=== PATIENT | male | born 1980 | race African-American/Black ===

== ENCOUNTER 2017-02-06 09:22 | Emergency (ER) | payer SELFPAY ==
[~2017-02-06] VITALS: Ht 175.3 cm; Wt 78.0 kg
[~2017-02-06 09:22] MED LIST: BACTDS PO; CEPH-443 PO; IBUP-1542 PO; METH500T PO; NAPR-260 PO; PROM6.25 PO
[2017-02-06 09:26] VITALS: Ht 175.3 cm; Wt 78.0 kg
[2017-02-06] MEDS ORDERED: CLIN-73 PO (10:18)
--- NOTE | 2017-02-06 10:18 | ERD ---
ER Documentation Chief Complaint Date/Time DATE: 02/06/17 TIME: 10:12 Chief Complaint pt bib tooth pain, and swelling x 2 days HPI This is a 36-year-old male who presents to the emergency department today complaining of left-sided dental pain and left-sided facial swelling for the past 2 days. Patient states he drinks alcohol, smokes marijuana and takes methamphetamines occasionally. Denies any fevers or chills, sore throat or difficulty breathing ROS All systems reviewed and are negative except as per history of present illness. Medications Home Meds Active Scripts Acetaminophen* (Tylophen*) 500 Mg Capsule, 1 CAP PO Q6H Y for PAIN AND OR ELEVATED TEMP, #30 CAP Prov:MARILU VILLARREAL PA-C 02/06/17 Naproxen* (Naprosyn*) 500 Mg Tablet, 500 MG PO BID Y for PAIN AND/OR INFLAMMATION, #30 TAB Prov:MARILU VILLARREAL PA-C 02/06/17 Clindamycin Hcl* (Clindamycin Hcl*) 300 Mg Capsule, 300 MG PO QID for 7 Days, CAP Prov:MARILU VILLARREAL PA-C 02/06/17 Methocarbamol* (Robaxin*) 500 Mg Tab, 500 MG PO Q8, #20 TAB Prov:RADHABONNIE DO 06/28/16 Naproxen* (Naprosyn*) 500 Mg Tablet, 500 MG PO BID Y for PAIN AND/OR INFLAMMATION, #30 TAB Prov:RADHABONNIE DO 06/28/16 Cephalexin* (Keflex*) 500 Mg Capsule, 500 MG PO QID for 7 Days, #28 CAP 0 Refills Prov:EFRA TROY PA-C 05/20/16 Promethazine w/Codeine* (Phenergan w/Codeine* Syrup) 5 Ml Syrup, 5 ML PO Q6 Y for COUGH for 3 Days, #60 ML 0 Refills Prov:EFRA TROY PA-C 05/20/16 Ibuprofen* (Motrin*) 600 Mg Tab, 600 MG PO Q8 for 10 Days, #30 TAB 0 Refills Prov:EFRA TROY PA-C 05/20/16 Sulfamethoxazole-Trimethoprim* (Bactrim* DS) 800-160 Mg Tab, 1 TAB PO BID for 7 Days, #14 TAB 0 Refills Prov:EFRA TROY PA-C 05/20/16 Allergies Allergies: Coded Allergies: Penicillins (Verified Allergy, Severe, 06/28/16) PMhx/Soc Medical and Surgical Hx: pt denies Medical Hx History of Surgery: No Anesthesia Reaction: No Hx Neurological Disorder: No Hx Respiratory Disorders: No Hx Cardiac Disorders: No Hx Psychiatric Problems: No Hx Miscellaneous Medical Probl: No Hx Alcohol Use: No Hx Substance Use: Yes (marijuana taken this morning) Hx Tobacco Use: No (marijuana) Physical Exam Vitals Vital Signs Date Time Temp Pulse Resp B/P Pulse Ox O2 Delivery O2 Flow Rate FiO2 02/06/17 09:26 98.3 84 18 146/90 98 Physical Exam Const: Talkative, no acute distress Head: Atraumatic Eyes: Normal Conjunctiva ENT: Ears TMs normal. Nose no drainage. Throat no erythema no exudate. Dental fracture and poor dentition left lower molars. Evidence of left-sided facial swelling likely small area of abscess that is firm and indurated with no evidence of fluctuance. No purulent drainage. Neck: Full range of motion..~ No meningismus. Resp: Clear to auscultation bilaterally Cardio: Regular rate and rhythm, no murmurs Skin: No petechiae or rashes Neur: Awake and alert Psych: Normal Mood and Affect Results 24 hrs Current Medications Medications (Trade) Dose Ordered Sig/Edy Route PRN Reason Start Time Stop Time Status Last Admin Dose Admin Clindamycin Phosphate (Cleocin) 600 mg ONCE ONCE IM 02/06/17 10:30 02/06/17 10:31 Ibuprofen (Motrin) 600 mg ONCE ONCE PO 02/06/17 10:30 02/06/17 10:31 Procedures/MDM This a 36-year-old male who presents to the emergency department today for dental pain and left-sided facial swelling. On physical exam patient has evidence of multiple areas of tooth fractures and poor dentition. He did have a localized area of swelling externally along the left side of his jaw. Patient has been seen here in the emergency department multiple times in the past for dental pain and abscesses. Patient is afebrile and otherwise well- appearing. He is talkative in no acute distress. Low suspicion for Romulo angina, retropharyngeal abscess, peritonsillar abscess, deep cavernous thrombosis, sepsis. I do not feel the patient requires laboratory work or imaging at this time he was also given Motrin. Patient was given a prescription for Naprosyn, clindamycin for home. I do not feel the patient's abscess requires incision and drainage at this time as there is no fluctuance. He was instructed to return in 48 hours for a wound check. Patient had an alcohol bottle that was empty fall out of his pocket or backpack as he was laying on the bed. I do not feel the patient would benefit from narcotics as he abuses drugs. Patient was given information for [facility] dentist I attempted to give the patient intramuscular clindamycin here however he refused. Patient was also asking for promethazine. Patient did not report a cough. Patient is exhibiting drug-seeking behaviors. At this time the patient is stable for discharge and outpatient management. Patient should follow up with their PCP in the next 1-2 days. they may return to the emergency department sooner for any persistent or worsening of symptoms. Patient understood and agreed with the plan. Departure Diagnosis: Primary Impression: Pain, dental Additional Impression: Facial abscess Condition: Fair MARILU VILLARREAL PA-C Feb 06, 2017 10:17
[2017-02-06] MEDS ORDERED: ACET500C5 PO (10:19)
[2017-02-06] MEDS ORDERED: NAPR-260 PO (10:19)
[2017-02-06] MEDS ORDERED: CLINDAMYCIN 300 MG INJ IM ONE (10:30)
[2017-02-06] MEDS ORDERED: IBUPROFEN 600 MG TAB PO ONE (10:30)
== END 2017-02-06 10:53 | disposition home or self-care (01) ==
LOC: FTE 09:22
DX: K08.89 Other specified disorders of teeth and supporting structures (principal); L02.01 Cutaneous abscess of face
CPT/HCPCS: 99283

== ENCOUNTER 2019-02-06 10:42 | Emergency (ER) | payer MEDICAID ==
[~2019-02-06] VITALS: Ht 175.3 cm; Wt 77.2 kg
[~2019-02-06 10:42] MED LIST changes: +ACET500C5 PO; +CLIN300C10 PO; -NAPR-260 PO; +NAPR-985 PO
[2019-02-06 10:46] VITALS: BP 157/101; PULSE 89; RESP 20; Ht 175.3 cm; Wt 77.2 kg
--- NOTE | 2019-02-06 11:38 | ERD ---
ER Documentation Chief Complaint Chief Complaint left hip pain, hit left hip on "gate" while climbing 2 days ago HPI 38-year-old male, previously healthy, presents the emergency department for a wound check of a laceration sustained 3 days ago with a fence. The patient was seen at [facility], and according to MrMaria Esther Alfredo he refused a suture repaired at that time, therefore,he was discharge with antibiotics. The patient refers feeling better, no pain, no fever, no chills, however, he has not been able to refill the medication. He denies distal weakness, numbness or tingling. ROS All systems reviewed and are negative except as per history of present illness. Medications Home Meds Active Scripts Acetaminophen* (Tylenol*) 325 Mg Tablet, 2 TAB PO Q6 PRN for PAIN AND OR ELEVATED TEMP, #20 TAB Prov:KATY KING MD 02/06/19 Sulfamethoxazole/Trimethoprim* (Bactrim Ds* Tablet) 1 Each Tablet, 1 TAB PO BID, #14 TAB Prov:KATY KING MD 02/06/19 Acetaminophen* (Tylophen*) 500 Mg Capsule, 1 CAP PO Q6H PRN for PAIN AND OR ELEVATED TEMP, #30 CAP Prov:MARILU VILLARREAL PA-C 02/06/17 Naproxen* (Naprosyn*) 500 Mg Tablet, 500 MG PO BID PRN for PAIN AND/OR INFLAMMATION, #30 TAB Prov:MARILU VILLARREAL PA-C 02/06/17 Clindamycin Hcl* (Clindamycin Hcl*) 300 Mg Capsule, 300 MG PO QID for 7 Days, CAP Prov:MARILU VILLARREAL PA-C 02/06/17 Methocarbamol* (Robaxin*) 500 Mg Tab, 500 MG PO Q8, #20 TAB Prov:BONNIE GARCIA DO 06/28/16 Naproxen* (Naprosyn*) 500 Mg Tablet, 500 MG PO BID PRN for PAIN AND/OR I NFLAMMATION, #30 TAB Prov:BONNIE GARCIA DO 06/28/16 Cephalexin* (Keflex*) 500 Mg Capsule, 500 MG PO QID for 7 Days, #28 CAP 0 Refills Prov:EFRA TROY PA-C 05/20/16 Promethazine w/Codeine* (Phenergan w/Codeine* Syrup) 5 Ml Syrup, 5 ML PO Q6 PRN for COUGH for 3 Days, #60 ML 0 Refills Prov:EFRA TROYJune 05/20/16 Ibuprofen* (Motrin*) 600 Mg Tab, 600 MG PO Q8 for 10 Days, #30 TAB 0 Refills Prov:EFRA TROY OSIEL 05/20/16 Sulfamethoxazole-Trimethoprim* (Bactrim* DS) 800-160 Mg Tab, 1 TAB PO BID for 7 Days, #14 TAB 0 Refills Prov:EFRA TROYJune 05/20/16 Allergies Allergies: Coded Allergies: Penicillins (Verified Allergy, Severe, 06/28/16) PMhx/Soc History of Surgery: No Anesthesia Reaction: No Hx Neurological Disorder: No Hx Respiratory Disorders: No Hx Cardiac Disorders: No Hx Psychiatric Problems: No Hx Miscellaneous Medical Probl: No Hx Alcohol Use: No Hx Substance Use: Yes (marijuana taken this morning) Hx Tobacco Use: No (marijuana) Smoking Status: Never smoker FmHx Family History: No diabetes, No coronary disease Physical Exam Vitals Vital Signs Date Temp Pulse Resp B/P (MAP) Pulse Ox O2 O2 Flow FiO2 Time Delivery Rate 02/06/19 97.1 89 20 157/101 100 10:46 (119) Physical Exam Const: No acute distress Head: Atraumatic Eyes: Normal Conjunctiva ENT: Normal External Ears, Nose and Mouth. Neck: Full range of motion. No meningismus. Resp: Clear to auscultation bilaterally Cardio: Regular rate and rhythm, no murmurs Abd: Soft, non tender, non distended. Normal bowel sounds Skin: No petechiae or rashes Back: No midline or flank tenderness Ext: Right hip: Laceration on the anterior aspect, no active bleeding, no evidence of infection, mild serous discharge. Distal neurovascular exam intact, no cyanosis, or edema. Neur: Awake and alert Psych: Normal Mood and Affect Procedures/MDM Status post wound of the Right hip 2 days ago. Adequate pain control, no fever, no chills. The patient was evaluated for infection and neurovascular compromise. The wound was clean and irrigated with normal saline and dressing applied. Patient is stable, with adequate healing process, okay to discharge home, medication adherence reinforced. some side effects of prescribed medications (headache, rash, nausea, vomiting, diarrhea, drowsiness, habituation, bleeding, hypertension, interactions with other medications) were reviewed. The patient was instructed to follow up with the primary care provider in the next 48h. If symptoms persist, worsen or new symptoms develop, then patient should return to the ED immediately. Instructions explained and given directly by me to the patient with acknowledgment and demonstrated understanding. Disclaimer: Inadvertent spelling and grammatical errors are likely due to EHR/dictation software use and do not reflect on the overall quality of patient care. Also, please note that the electronic time recorded on this note does not necessarily reflect the actual time of the patient encounter. Departure Diagnosis: Primary Impression: Laceration with foreign body, right hip, subsequent encounter Condition: Stable Additional Instructions: Thank you very much for allowing us to participate in your care. Your health and safety is our top priority at [facility]. Call your primary care doctor TOMORROW for an appointment during the next 2-4 days and bring all the information and medications prescribed. Have prescriptions filled and follow precisely the directions on the label. If the symptoms get worse and your provider is unavailable, return to the Emergency Department immediately. KATY KING MD Feb 06, 2019 11:38
[2019-02-06] MEDS ORDERED: ACET325T33 PO (11:48)
[2019-02-06] MEDS ORDERED: SULF1TAB31 PO (11:48)
== END 2019-02-06 12:09 | disposition home or self-care (01) ==
LOC: FTE 10:42
DX: S71.02 Laceration with foreign body of hip (principal); X58.XXXD Exposure to other specified factors, subsequent encounter
CPT/HCPCS: 99283